=== PATIENT | male | born 2005 | race Caucasian/White ===

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

== ENCOUNTER 2025-02-18 09:07 | Emergency (ER) | payer SELFPAY ==
[~2025-02-18] VITALS: Ht 167.6 cm; Wt 95.3 kg
[~2025-02-18 09:07] MED LIST changes: +CYCL5TAB PO; +IBUP-1958 PO
[2025-02-18] MEDS: FAMOTIDINE/PF INJ 20 MG/2 ML VIAL IV ONE (10:00)
[2025-02-18] MEDS: diphenhydrAMINE HCL 50 MG/ML VIAL IV ONE (10:00)
[2025-02-18] MEDS: methylPREDNISolone SOD SUCC 125 MG/2ML VIAL IV ONE (10:00)
[2025-02-18] MEDS ORDERED: FAMOTIDINE/PF INJ 20 MG/2 ML VIAL IV ONE (10:06)
[2025-02-18] MEDS ORDERED: methylPREDNISolone SOD SUCC 125 MG/2ML VIAL ONE (10:06)
[2025-02-18] MEDS ORDERED: diphenhydrAMINE HCL 50 MG/ML VIAL ONE (10:06)
[2025-02-18] MEDS ORDERED: PRED20TA PO (10:25)
[2025-02-18] MEDS ORDERED: EPIN0.3P3 IM (10:25)
[2025-02-18 11:06] VITALS: BP 131/74; TEMP 98.3; O2SAT 100
== END 2025-02-18 11:07 | disposition home or self-care (01) ==
LOC: ER 09:23
DX: T78.03XA Anaphylactic reaction due to other fish, initial encounter (principal); R49.0 Dysphonia; Y84.8 Other medical procedures as the cause of abnormal reaction of the patient, or of later complication, without mention of misadventure at the time of the procedure; Y82.8 Other medical devices associated with adverse incidents
CPT/HCPCS: 99284; 96374; 96375; J1200; J1308; J2919